=== PATIENT | female | born 1940 | race Caucasian/White ===

== ENCOUNTER 2017-01-26 12:36 | Day surgery (SDC) | payer MEDICARE ==
[~2017-01-26 12:36] MED LIST: GABA400C5 PO; LORT7.5T3 PO; MOBI15TA PO; PROPOFOL 200 MG/20 ML AMP IV ONE; TAB-TAB PO; TOVI8TAB PO
[2017-01-26] MEDS ORDERED: SODIUM CHLORID 0.9% 500 ML IV PRN (13:00)
[2017-01-26] MEDS ORDERED: LACTATED RINGER'S 1000 ML IV PRN (13:00)
[2017-01-26] MEDS ORDERED: LISI2.5T3 PO (13:13)
[2017-01-26] MEDS ORDERED: TORS20TA PO (13:13)
[2017-01-26] MEDS ORDERED: MULT1TAB84 PO (13:13)
[2017-01-26] MEDS ORDERED: AMIO200T PO (13:13)
[2017-01-26] MEDS ORDERED: SPIR25TA PO (13:13)
[2017-01-26] MEDS ORDERED: ATOR40TA16 PO (13:13)
[2017-01-26] MEDS ORDERED: APIX5TAB PO (13:13)
[2017-01-26] MEDS ORDERED: CARV3.125 PO (13:13)
[2017-01-26] MEDS ORDERED: HYDR-3583 PO (13:14)
[2017-01-26] MEDS ORDERED: GABA400C5 PO (13:14)
[2017-01-26] MEDS ORDERED: INSULIN HUMAN REGULAR 1,000 UNITS/10 ML VIAL SQ PRN (13:15)
[2017-01-26] MEDS ORDERED: CHLORHEXIDINE GLUCONATE 2 % 1 PACK (2 CLOTHS) TOPICAL PRN (13:15)
[2017-01-26] MEDS ORDERED: POVIDONE IODINE 5% (ANTISEPSIS KIT) 4 APPLICATIONS EACH NARE PRN (13:15)
[2017-01-26] MEDS ORDERED: METOPROLOL TARTRATE 25 MG TAB PO PRN (13:15)
[2017-01-26] MEDS ORDERED: ceFAZolin 2 GM PREMIX 50 ML IV SCH (13:30)
--- NOTE | 2017-01-27 09:00 | EKG ---
Date Performed: 01/26/2017 Time Performed: 14:44:06 PTAGE: 76 years EKG: Sinus rhythm with borderline 1st degree A-V block. Possible anterior infarct - age undetermined Abnormal ECG PREVIOUS TRACING : 01/26/2017 13.42 Compared to previous tracing, sinus rhythm has replaced atr ial fibrillation. DOCTOR: Dean Pires Interpretating Date/Time 01/27/2017 08:59:28
--- NOTE | 2017-01-27 09:06 | EKG ---
Date Performed: 01/26/2017 Time Performed: 13:42:38 PTAGE: 76 years EKG: Atrial fibrillation. Possible anterior infarct - age undetermined Lateral T wave changes ar e nonspecific Abnormal ECG PREVIOUS TRACING : 01/17/2015 09.30 Compared to previous tracing, atrial fibrillation has repla elinor Sinus rhythm . DOCTOR: Dean Pires Interpretating Date/Time 01/27/2017 09:04:35
--- NOTE | 2017-01-27 21:42 | MP ---
cc: CARISA CARRERA MD DATE OF SURGERY 01/27/17 PROCEDURE Transesophageal echo. INDICATION Atrial fibrillation CONSENT Full informed consent was obtained prior to procedure. Risks of , bleeding, myocardial infarction, perforation, aspiration, foreseen and unforeseen complications were reviewed. The patient fully appeared to understand. PROCEDURAL STATEMENT The patient was prepped in the usual manner. The patient was anesthetized as per the Anesthesia Department. A full EBONIE was performed. FINDINGS Ejection fraction appeared to be 40-45%. There was evidence of moderate mitral vegetation. The tricuspid valve moved normally. Aortic valve was mildly thickened. There was evidence of mild aortic regurgitation. Interatrial septum interventricular septum were intact. Left atrial appendage free of thrombus. Moderate MR on echo CONCLUSION Moderate mitral regurgitation No JOSE MIGUEL thrombus PLAN Proceed with cardioversion Carisa Carrera MD, FRCP,FACC HAAshutosh/ /2:18 PM /9:36 PM MTDD
--- NOTE | 2017-01-27 21:46 | MP ---
cc: CARISA CARRERA M.D. DATE OF SURGERY: 01/26/2017 PROCEDURE: Cardioversion. INDICATION Mitral regurgitation Atrial fibrillation. PROCEDURE PERFORMED: The patient was prepped and draped in the usual manner. The patient was given a single 200 joule shock which converted her from atrial fibrillation to sinus rhythm. The shock was synchronized. The patient had a full EBONIE was performed. She was noted to have moderate mitral regurgitation, ejection fraction was better than previously noted. Intraventricular septum was intact. Intra-atrial septum was intact. The left atrial appendage had thrombus. CONCLUSION Successful cardioversion from atrial fibrillation to sinus rhythm. PLAN: Will plan to discharge the patient later today. Will follow up in my office in one to two weeks. Carisa Carrera MD, [place],[facility] [place]/CHRISTEN /2:20 PM /9:30 PM
== END 2017-01-26 15:05 | disposition home or self-care (01) ==
LOC: HDOC 12:36 → HDIC 12:38 → HDOC 15:05
PROVIDERS: ATTEND Internal Medicine Cardiovascular Disease
DX: I48.91 Unspecified atrial fibrillation (principal); I34.0 Nonrheumatic mitral (valve) insufficiency
CPT/HCPCS: 92960; 93005; 93312; 93320; 93325